=== PATIENT | male | born 1980 | race Caucasian/White ===

== ENCOUNTER → 2017-10-26 09:15 | Outpatient (REF) | payer SELFPAY | LOC: OM 09:15 | PROVIDERS: PCP Family Medicine; Visit Provider Nurse Practitioner Family | DX: Z02.79 Encounter for issue of other medical certificate (principal) ==

== ENCOUNTER 2024-05-10 07:01 | Emergency (ER) | payer SELFPAY ==
[2024-05-10] VITALS (23 sets, daily range): BP systolic 162–200; BP diastolic 107–125; PULSE 86–105; RESP 13–26; TEMP 36.9; O2SAT 92–99
--- NOTE | 2024-05-10 07:15 | DI.CT_ITS ---
Exam(s) CT RENAL COLIC WO EXAM: CT RENAL COLIC WO CLINICAL HISTORY: L. flank pain, hx stones. TECHNIQUE: Imaging Protocol: Axial computed tomography images with coronal and sagittal reformatted images were created and reviewed. COMPARISON: CT RENAL COLIC WO CONTRAST from 03/15/2007 FINDINGS: Lack of IV contrast does limit evaluation of the abdominal pelvic organs. ABDOMEN: Lung Bases: Atelectatic changes are seen in the lung bases. Liver: Normal density. No measurable mass. Gallbladder and biliary tract: No radiodense calculus or biliary ductal dilation. Pancreas: Normal density, no abnormal calcifications or inflammatory process. Spleen: Normal. Kidneys: Normal size, contour and axis.There is a 5 mm stone at the left UPJ causing mild hydronephro sis. No masses seen. Adrenal glands: No mass is seen. Lymph nodes: Within normal limits. Abdominal Aorta: Abdominal portion non-dilated. Mild atherosclerotic calcification is present. PELVIS: Bladder:The urinary bladder is incompletely distended limiting evaluation. Bowel: No obstruction or bowel wall thickening. Appendix is unremarkable. Peritoneal cavity: No ascites, collection or mesenteric inflammatory response. No free air. Reproductive organs: Prostatic calcifications are present. Bones: Within normal limits. Soft Tissues: Within normal limits. IMPRESSION: 5 mm left UPJ stone causing mild hydronephrosis. RADIATION DOSE DELIVERED: 883.29mGy.cm Total DLP DATA REPOSITORY: All CT scans at this facility are submitted to the National Radiology Data Registry (NRDR) Dose Index Registry (DIR) with the [employer] (ACR). RADIATION OPTIMIZATION: All CT scans at this facility use at least one of these dose optimization te chniques: automated exposure control; mA and/or kV adjustment per patient size (includes targeted exa ms where dose is matched to clinical indication); or iterative reconstruction.
--- NOTE | 2024-05-10 07:27 | ED.GENADUL_ITS ---
Discharge Plan Disposition Patient Disposition: Home Condition: Stable Discharge Details Clinical Impression: Kidney stone on left side Primary Care Provider: Unknown,Unknown ED Provider: Juli Barton Home Meds and New Rx's Prescriptions: New morphine 15 mg tablet 15 mg PO Q8H PRNQty: 7 0RF ondansetron 4 mg tablet,disintegrating 4 mg PO Q8H PRNQty: 10 0RF tamsulosin [Flomax] 0.4 mg capsule 0.4 mg PO DAILY 30 Days Qty: 30 0RF Discharge Instructions Instructions: Kidney Stone, Adult ED Additional Instructions: You were seen in the emergency department today for evaluation of flank pain and were found to have a kidney stone. In our department you had a full physical examination performed and had laboratory studies that were reassuring. Your kidney stone is approximately 4 mm, which has a very good chance of passing on its own. I recommend that you increase your hydration, and continue to use Tylenol and ibuprofen as the bulk of your pain management. Most patients like to alternate these medications so that they have good pain management throughout the day. For example, you can take ibuprofen, 600 mg, in the morning, take 650 to 1000 mg of Tylenol 3 hours later, then 3 hours after that you are due for your next dose of ibuprofen, and so forth. I have provided you with a short prescription for stronger pain medication to be used for breakthrough pain. Please be cautious taking this medication, as it can make you drowsy and you should not drive while using it. I also sent you a prescription for nausea medications to allow you to maintain your hydration. You will be started on medication called Flomax, which decreases spasm in the urinary system and improves the flow of urine. Please use caution as this medication can sometimes cause dizziness when moving from sitting to standing. Please strain your urine to ensure passage of the stone. If the stone has not passed in 2 weeks and you are still experiencing pain, you need to be following up with your outpatient provider, including your PCP and/or urology. I provided you with a referral to establish with primary care, they should contact you to schedule an appointment. Thank you for allowing us to be part of your care. Referrals: David Barrett MD [ [facility] ST[facility]FF PHYSICIAN] - Return if symptoms worsen HPI General Mode of arrival: ambulatory . Date/Time Provider Initiated Documentation: 05/10/24 07:09 . Limitations to Documentation: no limitations . Information obtained by: patient, family and old records reviewed . HPI Narrative: HPI: This is a 44-year-old male patient with a past history of kidney stones presenting for evaluation of left flank pain. The patient was woken from sleep around 4 5 this morning with left-sided flank pain that radiates down into his right groin. He has not noted hematuria, has had some nausea but no vomiting. Yesterday he was in his normal state of health with normal p.o. intake. The patient reports that his last stone passed spontaneously. He moved back to the area from [place] and has not yet reestablished with primary care. Does not take any daily medications and is otherwise in good health. Denies abdominal pain, testicular pain. Exam: Gen: Awake and alert, in no apparent distress HEENT: Non-icteric sclera Neck: Supple Lungs: No apparent respiratory distress, normal respiratory effort. CV: Appears well perfused, heart with regular rate and rhythm Abdomen: Non-distended, soft, nontender to palpation without rigidity, rebound, guarding. Left flank tender to palpation with no overlying skin changes MSK: Moves 4 extremities without apparent limitation in ROM Skin: Visualized skin without rashes, cyanosis. Neuro: Normal Gait, no obvious focal deficits or facial asymmetry. Speaks in full, clear sentences. Psych: Appropriate for situation. MDM: This is a 44-year-old male patient presenting for evaluation of left flank pain. Differential includes but is not limited to renal stone, certainly considered infected stone and pyelonephritis. The patient has no abdominal pain to significantly increase my concern for intra-abdominal pathology such as diverticulitis, pancreatitis, gastroenteritis, appendicitis. No testicular pain to suggest torsion. The patient is without risk factors to significantly increase my concern for aortic pathology such as AAA. We will obtain laboratory studies to include CBC, CMP, magnesium, and urinalysis. I performed a bedside ultrasound and do not appreciate significant hydronephrosis on the affected left side. We will obtain a CT renal stone protocol, and provide the patient with initial symptom management to include Tylenol, Toradol, and Zofran. I will provide him with a liter of IV fluids for rehydration. ED Course: I independently interpreted the laboratory studies, which show no significant leukocytosis, anemia, or thrombocytopenia. The chemistry panel is without evidence of electrolyte abnormality, kidney dysfunction, or liver injury. Urinalysis with small blood, 10-20 RBCs but no evidence for infectious findings. I independently interpreted the patient CT scan, which shows a 5 mm left renal stone in the proximal ureter, with associated mild hydronephrosis but no other acute findings. On reassessment the patient reports significant improvement in his pain. We discussed outpatient management in detail to include multimodal pain medications, hydration, and Flomax. A referral to primary care was sent, and at this time, the patient has had a full medical evaluation and is safe for discharge to home. They are hemodynamically stable, ambulatory, and tolerating PO. They are understanding of the follow-up plan and return precautions. They left our facility without incident. Juli Barton MD Related Data Home Medications ?Medication ?Instructions ?Recorded ?Confirmed morphine 15 mg immediate release 15 mg PO Q8H PRN #7 tabs 05/10/24 tablet ondansetron 4 mg disintegrating 4 mg PO Q8H PRN #10 tabs 05/10/24 tablet tamsulosin 0.4 mg capsule (Flomax) 0.4 mg PO DAILY 30 days #30 caps 05/10/24 Previous Rx's ?Medication ?Instructions ?Recorded morphine 15 mg immediate release 15 mg PO Q8H PRN #7 tabs 05/10/24 tablet ondansetron 4 mg disintegrating 4 mg PO Q8H PRN #10 tabs 05/10/24 tablet tamsulosin 0.4 mg capsule (Flomax) 0.4 mg PO DAILY 30 days #30 caps 05/10/24 Allergies Allergy/AdvReac Type Severity Reaction Status Date / Time Penicillins Allergy Intermediate Hives Unverified 05/10/24 07:10 General Stated Complaint: FlankPain GIACOMO: 3 Course Vital Signs Vital signs: Vital Signs Temperature 36.9 C 05/10/24 07:06 Pulse 86 05/10/24 07:06 Respiratory Rate 20 05/10/24 07:06 Blood Pressure 179/122 H 05/10/24 07:06 Pulse Oximetry 97 05/10/24 07:06 Temperature 36.9 C 05/10/24 07:26 Temperature Source Oral 05/10/24 07:26 Pulse 92 H 05/10/24 07:26 Respiratory Rate 22 05/10/24 07:26 Blood Pressure 172/117 H 05/10/24 07:26 Blood Pressure Position Supine 05/10/24 07:26 Pulse Oximetry 96 05/10/24 07:26 Oxygen Delivery Method Room Air 05/10/24 07:26 Oxygen Flow Rate 0 05/10/24 07:06 Pain Level 10 05/10/24 07:26 Medical Decision Making Quality:SDOH Health Related Social Needs: No Data to Display PFSH All Active Problems (Updated 05/10/24 @ 08:27 by Juli Barton MD) Kidney stone on left side (Acute) Visit for suture removal (Acute) Social History Smoking/Tobacco Use Status: Current every day Smoking risk assessment performed?: Yes Alcohol Intake: current Alcohol Intake frequency: 3 or more drinks per day Alcohol type: beer Drug use: Never Substance use type: does not use Housing: house Do you feel safe at home: Yes Do you feel safe in your relationship?: Yes POCUS Exam (ED) Limited Retroperitoneal(Renal)Exam DATE OF EXAM: 05/10/24 TIME OF EXAM: 07:28 PROVIDER THAT PERFORMED THE STUDY: Juli Barton IS THIS A REPEAT EXAM DURING THIS ENCOUNTER: No REASON FOR EXAM: Flank pain/left side VISUALIZED STRUCTURES: Left kidney and Right kidney PERTINENT FINDINGS/IMPRESSION: No apparent abnormalities Exam complete
[2024-05-10 07:29] LABS: Abs Immature Grans 0.06 10^3/uL (0.0-0.06); Absolute Basophil Count 0.05 10^3/uL (0.0-0.2); Absolute Eosinophil Count 0.09 10^3/uL (0.0-0.7); Absolute Lymphocyte Count 1.31 10^3/uL (1.2-3.4); Absolute Monocyte Count 0.35 10^3/uL (0.1-0.8); Absolute Neutrophil Count 4.44 10^3/uL (1.2-6.7); Basophils % 0.8 %; Eosinophils % 1.4 %; HCT 51.1 % (40.0-50.0); HGB 17.3 g/dL (13.5-17.5); Lymphocytes % 20.8 %; MCH 33.7 pg (27.0-33.0); MCHC 33.9 % (32.0-36.0); MCV 100 fL (80-95); MPV 9.2 fL (8.0-11.0); Monocytes % 5.6 %; Neutrophils % 70.4 %; Platelet Count 219 10^3/uL (130-400); RBC 5.13 10^6/uL (4.36-5.78); RDW 12.1 % (11.8-14.1); RDW-SD 45.1 fL
[2024-05-10] MEDS: Lactated Ringers 1,000 ML 1000 ML IV (07:37)
[2024-05-10] MEDS: Ondansetron 4 MG/2 ML VIAL IVP (07:40)
[2024-05-10] MEDS: Ketorolac 15 MG/ML VIAL IVP (07:41)
[2024-05-10 07:42] LABS: ALT 41 U/L (16-63); AST 30 U/L (15-37); Albumin 3.5 g/dL (3.4-5.0); Alkaline Phosphatase 87 U/L (46-116); Anion Gap 11.4 mmol/L (3-11); BUN 6 mg/dL (7-18); Bilirubin, Total 0.5 mg/dL (0.2-1.0); CO2 27.6 mmol/L (21.0-32.0); Calcium 8.7 mg/dL (8.5-10.1); Chloride 105 mmol/L (98-107); Estimated GFR 95.77 (mL/min/1.73m2); Glucose 134 mg/dL (74-106); Magnesium 2.1 mg/dL; Potassium 4.6 mmol/L (3.5-5.1); Sodium 144 mmol/L (136-145); Total Protein 7.1 g/dL (6.4-8.2)
[2024-05-10] MEDS: Acetaminophen 500 MG TAB 1000 MG PO (07:42)
[2024-05-10 08:19] LABS: Bilirubin Negative (Negative); Blood Small (Negative); Clarity Clear (Clear); Glucose Negative (Negative); Ketones Negative (Negative); Leukocyte Esterase Negative (Negative); Nitrite Negative (Negative)
[2024-05-10 08:31] LABS: Bacteria Negative HPF (Negative); C & S Indicated? No; Casts Negative LPF (Negative); Crystals Negative HPF (Negative); Epithelial Cells Negative HPF (Negative); Mucus Negative (Negative); WBC 0-2 HPF (0-5)
== END 2024-05-10 08:59 | disposition home or self-care (01) ==
LOC: ER 08:38
PROVIDERS: Emergency Provider Emergency Medicine
DX: N13.2 Hydronephrosis with renal and ureteral calculous obstruction (principal); F17.210 Nicotine dependence, cigarettes, uncomplicated
CPT/HCPCS: 76775; 80053; 96361; 96374; 96375; 99285; 74176; 81003; 81015; 83735; 85025; 99284; J1885; J2405

== ENCOUNTER 2024-05-12 23:29 | Emergency (ER) | payer SELFPAY ==
[2024-05-12 23:32] VITALS: BP 222/144; PULSE 112; RESP 20; TEMP 36.9; O2SAT 98
--- NOTE | 2024-05-12 23:39 | ED.GENADUL_ITS ---
Discharge Plan Disposition Patient Disposition: Home Condition: Good Discharge Details Clinical Impression: Kidney stone, Constipation Primary Care Provider: Unknown,Unknown ED Provider: Gómez Guajardo Home Meds and New Rx's Prescriptions: New ketorolac 10 mg tablet 10 mg PO TID 5 Days Qty: 15 0RF docusate sodium [Colace] 100 mg capsule 100 mg PO BID Qty: 20 0RF No Action morphine 15 mg tablet 15 mg PO Q8H PRNQty: 7 0RF ondansetron 4 mg tablet,disintegrating 4 mg PO Q8H PRNQty: 10 0RF tamsulosin [Flomax] 0.4 mg capsule 0.4 mg PO DAILY 30 Days Qty: 30 0RF Discharge Instructions Instructions: Kidney Stone Diet, Constipation, Adult ED Additional Instructions: At this time your kidney function has begun to show an improvement trend after the hydration. It is critical that you stay well-hydrated over the next few days, drink 10 to 12 cups of water per day minimum. Make sure to drink lemon juice or supplement your water with this as well to help in the resolution of your kidney stone. There is a high likelihood that the stone is the type that would respond well to this. Please take 1000 mg of Tylenol every 6 hours. Do not take Motrin or ibuprofen anymore. If you need additional pain management you can take the morphine for breakthrough pain or if the Toradol. The Toradol may cause some continued irritation to your kidney so. You will likely need a stent to get the stone removed. Please follow-up closely with Dr. Barrett on Tuesday. Please call his office at 8 AM if he has not contacted you. In regards to your constipation, please take the prescribed Colace, 1 pill twice daily. We have given you a bottle of magnesium citrate. You can take this when you get home, make sure to drink it with 5 to 6 cups of water. This will cause significant cramping but this should bring about the passage of your bowel movement. If you notice any worsening of your symptoms, or any new symptoms such as vomiting, diarrhea, fever, chills, shortness of breath, chest pain, numbness, weakness, or fainting , please return immediately to the emergency department for reevaluation. Please follow up with your primary care provider as soon as possible for reassessment and reevaluation. As always, it was a pleasure participating in your medical care today. Referrals: David Barrett MD [ [facility] STAFF PHYSICIAN] - [facility] General Date/Time Provider Initiated Documentation: 05/12/24 23:30 . [facility] Narrative: This is a 44-year-old male with a past medical history of kidney stones in the distant past, no recent diagnosis 3 days ago, presents today for evaluation of continued left flank pain and constipation. Patient was diagnosed with a 5 mm left kidney stone in the proximal ureter, pain was well-controlled, he was discharged with morphine, NSAID therapy ondansetron and Flomax. He has been taking these as directed, however because of this he has had not had a bowel movement for the last day or so and feels quite constipated. He denies fever or chills. Pain in the left flank is persisting, there is also some mild left-sided cramping. He has not been using a strainer for his urine. He was given a strainer at discharge though per patient. No other complaints at this time. No other modifying factors. Related Data Home Medications ?Medication ?Instructions ?Recorded ?Confirmed morphine 15 mg immediate release 15 mg PO Q8H PRN #7 tabs 05/10/24 05/12/24 tablet ondansetron 4 mg disintegrating 4 mg PO Q8H PRN #10 tabs 05/10/24 05/12/24 tablet tamsulosin 0.4 mg capsule (Flomax) 0.4 mg PO DAILY 30 days #30 caps 05/10/24 05/12/24 docusate sodium 100 mg capsule 100 mg PO BID #20 caps 05/13/24 (Colace) ketorolac 10 mg tablet 10 mg PO TID 5 days #15 tabs 05/13/24 Previous Rx's ?Medication ?Instructions ?Recorded morphine 15 mg immediate release 15 mg PO Q8H PRN #7 tabs 05/10/24 tablet ondansetron 4 mg disintegrating 4 mg PO Q8H PRN #10 tabs 05/10/24 tablet tamsulosin 0.4 mg capsule (Flomax) 0.4 mg PO DAILY 30 days #30 caps 05/10/24 docusate sodium 100 mg capsule 100 mg PO BID #20 caps 05/13/24 (Colace) ketorolac 10 mg tablet 10 mg PO TID 5 days #15 tabs 05/13/24 Allergies Allergy/AdvReac Type Severity Reaction Status Date / Time Penicillins Allergy Intermediate Hives Unverified 05/12/24 23:38 General Stated Complaint: Nk/Back Pain GIACOMO: 3 Exam Narrative Exam Narrative: 1.Const: Well-nourished, Well-developed, appearing stated age 2.Eyes: PERRL, no conjunctival injection, and symmetrical lids. 3.ENT: Atraumatic external nose and ears. Moist MM. Neck: Symmetric, trachea midline, No thyromegaly. 4.CVS: +S1/S2, Peripheral pulses 2+ and equal in all extremities. Brisk capillary refill in all extremities. 5.RESP: Unlabored respiratory effort. Clear to auscultation bilaterally. No wheezes rales or rhonchi 6.GI: Soft, nondistended, no guarding or rebound. Mild left-sided flank and abdominal tenderness. No pain at McBurney's point, negative Mittal sign. 7.MSK: Normocephalic/Atraumatic, Extremities w/o deformity or ttp No cyanosis or clubbing, Normal movement of all extremities 8.Skin: Warm, Dry. No rashes or lesions. 9.Neuro: emissions inspector II-XII grossly intact. Sensation grossly intact, no focal neurologic deficits. 10.Psych: (AAO) x3. Appropriate mood and affect Course Vital Signs Vital signs: Vital Signs Temperature 36.9 C 05/12/24 23:32 Pulse 112 H 05/12/24 23:32 Respiratory Rate 20 05/12/24 23:32 Blood Pressure 222/144 H 05/12/24 23:32 Pulse Oximetry 98 05/12/24 23:32 Temperature 36.9 C 05/12/24 23:32 Pulse 112 H 05/12/24 23:32 Respiratory Rate 20 05/12/24 23:32 Blood Pressure 222/144 H 05/12/24 23:32 Blood Pressure Position Sitting 05/12/24 23:32 Pulse Oximetry 98 05/12/24 23:32 Oxygen Delivery Method Room Air 05/12/24 23:32 Oxygen Flow Rate 0 05/12/24 23:32 Pain Level 10 05/12/24 23:36 Medical Decision Making This is a pleasant 48-year-old male with a past medical history of PTSD, polycythemia vera, hyperaldosteronism, and recurrent frequent kidney stones. Patient is seen and managed by Dr. Barrett, but he is also recently been connected with urology specialists in [place] who are working at a conference level to help identify a solution for the patient's recurrent kidney stones. He presents today for evaluation of flank pain. Patient had a stent placed by Dr. Barrett about 5 days ago on the left. He was given antibiotics prior to the procedure to help sterilize any potential infectious component. Stent was placed and since then he has had somewhat persistent and recurrent pain mostly in the left flank but also some in the right. Pain has notably worsened over the last 24 hours, but he has had significant difficulty with urination over the last 24 hours. Only small amounts of urine have been coming out. He admits to occasional fever yesterday, then chills today and yesterday. He is taking his regular scheduled narcotics, NSAIDs and Flomax without relief. No other complaints at this time. No other modifying factors. Physical exam demonstrates mild left-sided flank tenderness, no guarding or rebound in the abdomen. Vital signs demonstrate hypertension and tachycardia, concern for persistent stone, infection, certainly constipation. Symptoms appear less likely to be diverticulitis. We will check labs, evaluate for worsening renal function, recheck UA, treat the patient's pain with Toradol and Ofirmev and rehydrate, monitor closely and reassess. 3 AM Patient's laboratory workup has returned, no white count bandemia, electrolytes stable, creatinine has gone up from 1-1.6, GFR has decreased. On reassessment patient has complete resolution of his pain after the Toradol and Ofirmev. He feels well. He has been rehydrated with 2 L total of IV fluids. CT scan was ordered secondary to the worsening renal function, CT scan shows no change in hydronephrosis, and demonstrates notable stability. It is currently the week d, and unfortunately Dr. Barrett is not on-call. I did reach out to [facility] and discussed the case with Dr. Gama. Unfortunately the [facility] system is down and they were not able to see images but I did discuss the image findings with them. With the elevation of the creatinine he does recommend reassessment of the renal function after hydration. If the renal function is improving, patient likely could wait until Tuesday for potential stenting, as that is only 27 hours away. We will recheck renal function at this time. 5:37 AM Patient has an improvement of his trend for his renal function, GFR and creatinine are slightly improving. He feels well and remains pain-free. I do not see an indication for emergent stenting tonight. I do feel he would likely benefit from stenting in the next 24 to [address] a referral with Dr. Barrett for this. Patient will be discharged home, he will be given a bottle of magnesium citrate to help with the constipation, Colace prescription, and Toradol to use only as needed for breakthrough pain. Discussed the importance of lemon juice, hydration, and close follow-up and return if symptoms worsen. He understands this. I have extensively reviewed the treatment plan and discharge instructions with the patient and their family. I have addressed all patient concerns at this time. The patient and family was made aware of what symptoms to monitor for that would warrant a return to the emergency department. Discussed the plan with the patient and family, they demonstrate verbal understanding and agreement with our assessment and plan at this time. The documentation in this chart was dictated using [id number] dictation software. Please excuse any dictation errors. FINDINGS: Lungs: Mild posterior lung dependent parenchymal changes bilaterally. Liver: No discrete liver lesion. Gallbladder and biliary ducts: Normal. No calcified stones. No ductal dilation. Pancreas: Normal. No ductal dilation. Spleen: Normal. No splenomegaly. Adrenal glands: Normal. No mass. Kidneys and ureters: Normal unenhanced right kidney. Mild left perinephric stranding. Compared to the prior CT abdomen/pelvis without contrast dated 05/10/2024, no interval change in left hydronephrosis or approximate 5.5 mm calcified stone at the left UPJ. Stomach and bowel: Unremarkable. No obstruction. No mucosal thickening. Appendix: Normal appendix. Intraperitoneal space: No free air. No significant fluid collection. Vasculature: The abdominal aorta is normal in caliber without aneurysm. Lymph nodes: No enlarged lymph nodes. Urinary bladder: Unremarkable as visualized. Reproductive: Unremarkable as visualized. Bones/joints: Unremarkable for patient age. Soft tissues: Small fat-containing umbilical hernia. IMPRESSION: Compared to the prior CT abdomen/pelvis without contrast dated 05/10/2024, no interval change in left hydronephrosis or approximate 5.5 mm calcified stone at the left UPJ. Thank you for allowing us to participate in the care of your patient. Dictated and Authenticated by: Jorge Lowery MD 05/13/2024 2:39 AM Eastern Time ([place] & [place] Quality:SDOH Health Related Social Needs: No Data to Display PFSH All Active Problems (Updated 05/13/24 @ 05:27 by Gómez Guajardo DO) Constipation (Acute) Kidney stone (Chronic) Kidney stone on left side (Acute) Visit for suture removal (Acute) Social History Smoking/Tobacco Use Status: Current every day Smoking risk assessment performed?: Yes Alcohol Intake: current Alcohol Intake frequency: 3 or more drinks per day Alcohol type: beer Drug use: Never Substance use type: does not use Housing: house Do you feel safe at home: Yes Do you feel safe in your relationship?: Yes
[2024-05-12 23:49] LABS: Abs Immature Grans 0.06 10^3/uL (0.0-0.06); Absolute Basophil Count 0.03 10^3/uL (0.0-0.2); Absolute Eosinophil Count 0.04 10^3/uL (0.0-0.7); Absolute Lymphocyte Count 0.93 10^3/uL (1.2-3.4); Absolute Monocyte Count 0.69 10^3/uL (0.1-0.8); Absolute Neutrophil Count 7.62 10^3/uL (1.2-6.7); Basophils % 0.3 %; Eosinophils % 0.4 %; HCT 46.2 % (40.0-50.0); Immature Grans % 0.6 %; Lymphocytes % 9.9 %; MCH 34.3 pg (27.0-33.0); MCHC 34.6 % (32.0-36.0); MCV 99 fL (80-95); MPV 8.9 fL (8.0-11.0); Monocytes % 7.4 %; Neutrophils % 81.4 %; Platelet Count 179 10^3/uL (130-400); RBC 4.67 10^6/uL (4.36-5.78); RDW 11.9 % (11.8-14.1); RDW-SD 43.4 fL; WBC 9.37 10^3/uL (4.4-10.8)
[2024-05-12] MEDS: Ketorolac 30 MG/ML VIAL IVP (23:50)
[2024-05-12] MEDS: ACETAMINOPHEN 1,000 MG/100 ML BAG 400 MG IVPB (23:50)
[2024-05-12 23:51] VITALS: PULSE 105; RESP 19; O2SAT 93
[2024-05-12] MEDS: Lactated Ringers 1,000 ML 1000 ML IV (23:51)
[2024-05-12 23:54] VITALS: BP 220/124; PULSE 105; PULSE 106; RESP 19; O2SAT 93
[2024-05-12 23:55] VITALS: PULSE 103; PULSE 104; RESP 18; O2SAT 94
[2024-05-13] VITALS (38 sets, daily range): BP systolic 167–200; BP diastolic 108–124; PULSE 89–108; RESP 13–22; O2SAT 91–97
[2024-05-13 00:04] LABS: ALT 35 U/L (16-63); AST 24 U/L (15-37); Albumin 3.6 g/dL (3.4-5.0); Alkaline Phosphatase 82 U/L (46-116); Anion Gap 6.1 mmol/L (3-11); BUN 10 mg/dL (7-18); Bilirubin, Total 0.8 mg/dL (0.2-1.0); CO2 29.9 mmol/L (21.0-32.0); CREATININE 1.6 mg/dL (0.70-1.30); Calcium 9.3 mg/dL (8.5-10.1); Chloride 101 mmol/L (98-107); Estimated GFR 54.49 (mL/min/1.73m2); Glucose 103 mg/dL (74-106); Potassium 4.7 mmol/L (3.5-5.1); Sodium 137 mmol/L (136-145); Total Protein 7.6 g/dL (6.4-8.2)
--- NOTE | 2024-05-13 01:04 | DI.CT_ITS ---
Exam(s) CT ABDOMEN PELVIS WO EXAM: CT ABDOMEN PELVIS WO CLINICAL HISTORY: kidney stone, worsening renal fxn. eval for obstru. TECHNIQUE: Imaging Protocol: Axial computed tomography images with coronal and sagittal reformatted images were created and reviewed. COMPARISON: CT RENAL COLIC WO CONTRAST from 03/15/[address] RENAL COLIC WO from 05/10/2024 FINDINGS: ABDOMEN: Lung Bases: There is atelectasis in the lung bases. Liver: There is fatty infiltration of the liver. No measurable mass. Gallbladder and biliary tract: No radiodense calculus or biliary ductal dilation. Pancreas: Normal density, no abnormal calcifications or inflammatory process. Spleen: Normal. Kidneys: Normal size, contour and axis.The stone at the UPJ is unchanged in location. There is stabl e mild hydronephrosis. No masses seen. Adrenal glands: No mass is seen. Lymph nodes: Within normal limits. Abdominal Aorta: Abdominal portion non-dilated. Mild atherosclerotic calcification is present. PELVIS: Bladder:Symmetric distention, no gross wall thickening. Bowel: There is diverticulosis seen in the colon but no evidence of acute diverticulitis. There is n o evidence of bowel wall thickening or obstruction. Appendix is unremarkable. Peritoneal cavity: No ascites, collection or mesenteric inflammatory response. No free air. Reproductive organs: Unremarkable as visualized. Bones: No acute abnormality is seen in the osseous structures. Soft Tissues: Within normal limits. IMPRESSION: There has been no change in the location or the degree of hydronephrosis caused by the 5 mm stone at the left UPJ. RADIATION DOSE DELIVERED: 808.62mGy.cm Total DLP DATA REPOSITORY: All CT scans at this facility are submitted to the National Radiology Data Registry (NRDR) Dose Index Registry (DIR) with the [employer] (A[employer]). RADIATION OPTIMIZATION: All CT scans at this facility use at least one of these dose optimization te chniques: automated exposure control; mA and/or kV adjustment per patient size (includes targeted exa ms where dose is matched to clinical indication); or iterative reconstruction.
[2024-05-13] MEDS: Normal Saline 1,000 ML 1000 ML IV (01:16)
[2024-05-13 01:24] LABS: Bilirubin Negative (Negative); Blood Negative (Negative); Clarity Clear (Clear); Glucose Negative (Negative); Ketones Negative (Negative); Leukocyte Esterase Negative (Negative); Nitrite Negative (Negative); Urobilinogen 0.2 mg/dL (Up to 0.2)
--- NOTE | 2024-05-13 02:39 | DI.VRAD_ITS ---
PROCEDURE INFORMATION: Exam: CT Abdomen And Pelvis Without Contrast Exam date and time: 05/13/2024 12:56 AM Age: 44 years old Clinical indication: Kidney stone, worsening renal fxn. Eval for obstruction TECHNIQUE: Imaging protocol: Computed tomography of the abdomen and pelvis without contrast. COMPARISON: CT RENAL COLIC WO 05/10/2024 8:10 AM FINDINGS: Lungs: Mild posterior lung dependent parenchymal changes bilaterally. Liver: No discrete liver lesion. Gallbladder and biliary ducts: Normal. No calcified stones. No ductal dilation. Pancreas: Normal. No ductal dilation. Spleen: Normal. No splenomegaly. Adrenal glands: Normal. No mass. Kidneys and ureters: Normal unenhanced right kidney. Mild left perinephric stranding. Compared to the prior CT abdomen/pelvis without contrast dated 05/10/2024, no interval change in left hydronephrosis or approximate 5.5 mm calcified stone at the left UPJ. Stomach and bowel: Unremarkable. No obstruction. No mucosal thickening. Appendix: Normal appendix. Intraperitoneal space: No free air. No significant fluid collection. Vasculature: The abdominal aorta is normal in caliber without aneurysm. Lymph nodes: No enlarged lymph nodes. Urinary bladder: Unremarkable as visualized. Reproductive: Unremarkable as visualized. Bones/joints: Unremarkable for patient age. Soft tissues: Small fat-containing umbilical hernia. IMPRESSION: Compared to the prior CT abdomen/pelvis without contrast dated 05/10/2024, no interval change in left hydronephrosis or approximate 5.5 mm calcified stone at the left UPJ. Dictated and Authenticated by: Jorge Lowery MD. Orderin Casandra Magaña MD
[2024-05-13 03:23] LABS: Anion Gap 6.4 mmol/L (3-11); BUN 10 mg/dL (7-18); CO2 28.6 mmol/L (21.0-32.0); CREATININE 1.6 mg/dL (0.70-1.30); Calcium 8.6 mg/dL (8.5-10.1); Chloride 105 mmol/L (98-107); Estimated GFR 54.49 (mL/min/1.73m2); Glucose 97 mg/dL (74-106); Potassium 4.4 mmol/L (3.5-5.1); Sodium 140 mmol/L (136-145)
[2024-05-13] MEDS: Lactated Ringers 1,000 ML 1000 ML IV (03:32)
[2024-05-13 05:18] LABS: Anion Gap 7.2 mmol/L (3-11); BUN 10 mg/dL (7-18); CO2 27.8 mmol/L (21.0-32.0); CREATININE 1.5 mg/dL (0.70-1.30); Calcium 8.7 mg/dL (8.5-10.1); Chloride 103 mmol/L (98-107); Estimated GFR 58.87 (mL/min/1.73m2); Glucose 94 mg/dL (74-106); Potassium 4.4 mmol/L (3.5-5.1); Sodium 138 mmol/L (136-145)
[2024-05-13] MEDS: Magnesium Citrate 300 ML BTL 150 ML PO (05:38)
== END 2024-05-13 05:38 | disposition home or self-care (01) ==
PROVIDERS: Emergency Provider Student in an Organized Health Care Education/Training Program
DX: R10.9 Unspecified abdominal pain (principal); N20.1 Calculus of ureter; K59.00 Constipation, unspecified; F17.200 Nicotine dependence, unspecified, uncomplicated; Z96.0 Presence of urogenital implants
CPT/HCPCS: 80048; 80053; 96361; 96365; 96375; 99284; 74176; 81003; 85025; J0131; J1885

== ENCOUNTER 2024-05-23 08:44 | Outpatient (CLI) | payer SELFPAY ==
--- NOTE | 2024-05-23 08:45 | RT.EKG_ITS ---
APPROVED REPORT Exam: Resting ECG Reason for Exam: Preop eval/hypertensive Patient Location: O HR:90 bpm ECG Measurements Heart Rate 90 AXIS OR 146 P 19 QRSd 95 QRS -6 QT 375 T 7 QTc 459 Conclusion Sinus rhythm...normal P axis, V-rate 50- 99 Probable left atrial enlargement...P >50mS, <-0.10mV V1 Otherwise normal ECG
== END 2024-05-23 08:45 | disposition home or self-care (01) ==
PROVIDERS: Visit Provider Nurse Practitioner Gerontology
DX: I10 Essential (primary) hypertension (principal)
CPT/HCPCS: 93005; 93010

== ENCOUNTER 2024-05-31 07:00 | Day surgery (SDC) | payer SELFPAY ==
[2024-05-31] VITALS (12 sets, daily range): BP systolic 161–174; BP diastolic 114–120; PULSE 86–96; RESP 16–20; TEMP 36.3–36.5; O2SAT 96–99; BMI 30.8
[2024-05-31] MEDS: Lactated Ringers 1,000 ML 80 ML IV (07:54)
--- NOTE | 2024-05-31 08:27 | ANES.PREOP_ITS ---
General Info Date of Service Date Performed: 05/31/24 Height: 6 ft 4 in Weight: 114.8 kg Body Mass Index (BMI): 30.8 Surgical Procedure: Operation Date: 05/31/24 08:40 Proposed Procedure Side Surgeon p Cystoscopy/Possible Laser/Retrograde/Ureteroscopy/ Stone Manipulation/ ? Stent Left David Barrett MD Meds Allergies and Home Medications Allergies Allergy/AdvReac Type Severity Reaction Status Date / Time Penicillins Allergy Intermediate Hives Verified 05/31/24 07:19 Home Medication ?Medication ?Instructions ?Recorded docusate sodium 100 mg capsule 100 mg PO BID #20 caps 05/13/24 (Colace) ketorolac 10 mg tablet 10 mg PO Q8H #15 tabs 05/23/24 losartan 100 mg tablet 100 mg PO DAILY #90 tabs 05/23/24 tamsulosin 0.4 mg capsule 0.4 mg PO DAILY 05/24/24 Current Visit Medications: Current Medications Generic Name Dose Route Start Last Admin Trade Name Freq PRN Reason Stop Dose Admin Ringer's Solution 1,000 mls @ 80 mls/hr 05/31/24 06:00 05/31/24 07:54 IV 05/31/24 23:59 80 mls/hr INFUSION FLORY Administration Ciprofloxacin 400 mg in 200 mls @ 200 mls/hr 05/31/24 06:00 Cipro I.V. IVPB 05/31/24 23:59 PREOP FLORY IV Miscellaneous Supplies 1 each 05/31/24 06:00 Iv Access IV 05/31/24 23:59 DIRECTED FLORY Sodium Chloride 0 ml 05/31/24 06:00 Normal Saline Flush 10 Ml Syr IV 05/31/24 23:59 PRN PRN Sodium Chloride 0 ml 05/31/24 06:00 Normal Saline 10 Ml Vial IJ 05/31/24 23:59 DIRECTED PRN Sterile Water 0 ml 05/31/24 06:00 Water,Injection,Sterile 10 Ml Vial IJ 05/31/24 23:59 DIRECTED PRN PFSH Active Problems Active Problems: Problem Status Onset Code Hypertension Chronic I10 Constipation Acute K59.00 Kidney stone Chronic N20.0 Kidney stone on left side Acute N20.0 Visit for suture removal Acute Z48.02 Medical History Medical History Hx of fracture of leg Surgical History Surgical History Hx of wisdom tooth extraction Tobacco Smoking/Tobacco Use Status: Current every day Tobacco Type: cigarettes Passive smoking exposure: Yes Alcohol Alcohol Intake: current Alcohol intake frequency: 3 or more drinks per day Alcohol type: beer Substance Use Substance use: Never Substance use type: does not use Vital Signs and Lab Results Vital Signs Most Recent Vital Signs in EMR: Most Recent Vital Signs Temp Pulse Resp BP Pulse Ox 36.4 C L 96 H 16 168/115 H 99 05/31/24 07:22 05/31/24 07:22 05/31/24 07:22 05/31/24 07:22 05/31/24 07:22 Lab Results Blood Type / Crossmatch: No Data to Display Complete Blood Count: White Blood Count 9.37 10^3/uL (4.4-10.8) 05/12/24 23:44 Red Blood Count 4.67 10^6/uL (4.36-5.78) 05/12/24 23:44 Hemoglobin 16.0 g/dL (13.5-17.5) 05/12/24 23:44 Hematocrit 46.2 % (40.0-50.0) 05/12/24 23:44 Platelet Count 179 10^3/uL (130-400) 05/12/24 23:44 Complete Metabolic Panel: Sodium 138 mmol/L (136-145) 05/13/24 05:00 Potassium 4.4 mmol/L (3.5-5.1) 05/13/24 05:00 Chloride 103 mmol/L (98-107) 05/13/24 05:00 Carbon Dioxide 27.8 mmol/L (21.0-32.0) 05/13/24 05:00 BUN 10 mg/dL (7-18) 05/13/24 05:00 Creatinine 1.5 mg/dL (0.70-1.30) H 05/13/24 05:00 Est GFR (CKD-EPI 2020) 58.87 (mL/min/1.73m2) 05/13/24 05:00 Magnesium 2.1 mg/dL 05/10/24 07:20 Calcium 8.7 mg/dL (8.5-10.1) 05/13/24 05:00 Albumin 3.6 g/dL (3.4-5.0) 05/12/24 23:44 Glucose 94 mg/dL (74-106) 05/13/24 05:00 Liver Function Panel: Alanine Aminotransferase (ALT/SGPT) 35 U/L (16-63) 05/12/24 23: 44 Aspartate Amino Transf (AST/SGOT) 24 U/L (15-37) 05/12/24 23:44 Coagulation Panel: No Data to Display Cardiac Panel: No Data to Display Arterial Blood Gas: No Data to Display Venous Blood Gas: No Data to Display Pancreas Panel: No Data to Display Thyroid Panel: No Data to Display Infectious Disease: No Data to Display Blood Cultures: No Data to Display Toxicology Panel: No Data to Display Anesthesia Assessment and Plan Anesthesia History Personal History: No History of Anesthesia Complications Family History: No Family History of Anesthesia Complications Exercise Tolerance Exercise Tolerance: Metabolic Equivalents>4 Pertinent Negatives Pertinent Negatives: No Major Pulmonary Symptoms or Complaints and No History of CVA/TIA Cardiac & Pulmonary Exam Cardiac Exam: Normal S1/S2 Heart Sounds Pulmonary Exam: Clear Bilateral Breath Sounds Implantable Cardiac Device Does patient have a Pacemaker or an ICD?: No Airway Exam Known Difficult Airway: No Mallampati Class: 3 Mouth Opening: Normal (> 3cm) Thyromental Distance: Greater than 3 cm Facial Hair: Full Brown Neck Range of Motion: Full ROM Neck Circumference: Normal Teeth Condition: Generalized Poor Dentition Airway Comments: Cracked lower right molar, stated second from the back, unable to appreciate. ASA Classification ASA Score: ASA 2 Emergency Case?: No NPO Status NPO Status: NPO Clears >2 hours, Solids >8 hours Anesthesia Plan Resuscitation Status: Full Code Anesthesia Technique: General Anesthesia Airway Planned: Natural Airway Monitors Used: Standard Monitors Preoperative Comments:: GERD only with alcohol per patient, no recent symptoms. Still working on blood pressure control, okay to proceed today.
--- NOTE | 2024-05-31 08:51 | W.PM.HP.N ---
Date of service: 05/31/24 Time of Service: 08:51 Assessment and Plan Assessment and plan (1) Kidney stone on left side: Status: Acute Assessment and plan: At the time of his most recent imaging, his left ureteral stone was quite proximal. We will plan to do cystoscopy, left retrograde pyelogram and possible ureteroscopy and holmium laser lithotripsy of his stone. If we are not able to access his stone, we may need to place a ureteral stent and arrange for a staged procedure with a return to the OR for ureteroscopy and holmium laser lithotripsy. History of Present Illness History of Present Illness Chief Complaint: Left ureteral stone Narrative: This is a 44 year old man who has a past history of kidney stones. He passed his stone spontaneously. We are unaware of a stone analysis result. He presents now with left flank pain that radiates to his groin and testicle. He has had nausea. He was seen in the ED on 2 separate occasions and he was found to have a left proximal ureteral stone. The stone has no progressed on imaging. Since that time, his pain has been less frequent and seems more localized to the left groin. He presents for ureteroscopic stone manipulation. He was found to have an elevated BP. He was seen by our cardiology colleagues and started on losartin. Review of Systems Narrative: No fevers or chills No vision change or dysphasia No diabetes or thyroid dysfunction No shortness of breath, cough or hemoptysis No chest pain or palpitations No hepatitis, ulcers, jaundice No seizures, strokes or peripheral neuropathy No bleeding disorders or anemia No gout PFSH All Active Problems Hypertension (Chronic) Constipation (Acute) Kidney stone (Chronic) Kidney stone on left side (Acute) Visit for suture removal (Acute) Medical History Hx of fracture of leg Surgical History Hx of wisdom tooth extraction Social History Smoking/Tobacco Use Status: Current every day Tobacco Type: cigarettes Smoking risk assessment performed?: Yes Alcohol Intake: current Alcohol Intake frequency: 3 or more drinks per day Alcohol type: beer Drug use: Never Substance use type: does not use Housing: house Do you feel safe at home: Yes Do you feel safe in your relationship?: Yes Meds Allergies and Home Medications Allergies Allergy/AdvReac Type Severity Reaction Status Date / Time Penicillins Allergy Intermediate Hives Verified 05/31/24 07:19 Home Medications ?Medication ?Instructions ?Recorded ?Confirmed ?Type docusate sodium 100 mg capsule 100 mg PO BID #20 caps 05/13/24 05/31/24 Rx (Colace) ketorolac 10 mg tablet 10 mg PO Q8H #15 tabs 05/23/24 05/31/24 Rx losartan 100 mg tablet 100 mg PO DAILY #90 tabs 05/23/24 05/31/24 Rx tamsulosin 0.4 mg capsule 0.4 mg PO DAILY 05/24/24 05/31/24 History Exam Const General: cooperative Neck Neck: supple Resp Effort & Inspection: normal respiratory effort Auscultation: clear to auscultation bilaterally Cardio Rate: regular rate Rhythm: regular rhythm GI Palpation: soft and no masses Neuro General: patient alert, patient awake and patient oriented x3 Results Last Vital Signs Temp 36.4 C L 05/31/24 07:22 Pulse 96 H 05/31/24 07:22 Resp 16 05/31/24 07:22 BP 168/115 H 05/31/24 07:22 Pulse Ox 99 05/31/24 07:22 Time Spent Time spent with Patient: <40 minutes Time was spent: other
[2024-05-31] MEDS: CIPROFLOXACIN 400 MG/200 ML BAG 200 MG IVPB (09:23)
[2024-05-31] MEDS: Lidocaine 2% Jelly 11 ML SYR (09:51)
[2024-05-31] MEDS: Omnipaque 300 MG/ML 50 ML BTL (10:10)
--- NOTE | 2024-05-31 10:15 | DI.RAD_ITS ---
Exam(s) XR RETROGRADE IN OR EXAM: XR RETROGRADE IN OR CLINICAL HISTORY: Kidney stone on left side TECHNIQUE: 2D and realtime digital imaging was performed. CONTRAST MATERIAL: Refer to procedure report. COMPARISON: No exams were available for comparison FINDINGS: Fluoroscopy was provided for Dr. Barrett during the performance of a retrograde evaluation of the josue l collecting system. Please refer to the procedure report for complete details. Ka,r=17.1 mGy IMPRESSION: RADIATION DOSE DELIVERED: 0.0 0.0 0
--- NOTE | 2024-05-31 10:21 | PDOC.DSDIS_ITS ---
Date of service: 05/31/24 Discharge Plan Disposition Patient Disposition: Home Discharge Details Reason For Visit: ureteral stone Attending Provider: David Barrett Primary Care Provider: None,None Home Meds and New Rx's Prescriptions: No Action ketorolac 10 mg tablet 10 mg PO Q8H Qty: 15 0RF Rx Instructions: maximum total duration of 5 days from all oral, intranasal, or parenteral fo rmulations tamsulosin 0.4 mg capsule 0.4 mg PO DAILY losartan 100 mg tablet 100 mg PO DAILY Qty: 90 3RF docusate sodium [Colace] 100 mg capsule 100 mg PO BID Qty: 20 0RF Discharge Instructions Additional Instructions: There is no need to strain your urine You have a stent in the left ureter. As long as the stent is in place, you may see blood in your urine and you may have discomfort when you urinate. The stent will be removed in the office within a week - this can be done by the nursing staff You will need an appointment to see me in the office in 6 to 8 weeks. I will do a renal ultrasound in the office at that time. Discharge Orders Discharge Orders: Discharge Order (Routine); Ordered 05/31/24 Ordered By: David Barrett DS: Diagnosis Discharge Diagnosis (1) Kidney stone on left side: Status: Acute
--- NOTE | 2024-05-31 10:26 | ROE_ITS ---
Operative Note Operative Note PRE-OP DIAGNOSIS: left ureteral stone POST-OP DIAGNOSIS: same PROCEDURE: cystoscopy, left retrograde pyelogram, left ureteroscopy with holmium laser lithotripsy, extraction of stone fragments, insert left ureteral stent SURGEON: David Barrett ANESTHESIA TYPE: Local By Surgeon and General:No Airway Refer to Anesthesia Record ESTIMATED BLOOD LOSS: 5 PATHOLOGY: other (stones for chemical analysis) COMPLICATIONS: None Patient was transported to: PACU Patient's condition: stable Implants: 4.8 [place] by 22 to 30 cm left ureteral stent with safety string attached Indications: This is a 44-year-old gentleman who does have a past history of kidney stones. His previous stone passed with conservative management. He has not required surgical treatment for stones in the past. He has had multiple recent emergency room visits for left renal colic. He has had 2 [address] scans that show a left proximal ureteral stone that does not seem to be progressing with conservative treatment. He presents for stone manipulation. Findings: Left proximal ureteral stone Procedure Description: The patient was given IV antibiotics and brought to the operating room on 05/31/2024. After successful induction of general anesthesia without intubation, he was placed in the dorsal lithotomy position. His genitalia was prepped and draped. 2% Xylocaine jelly was instilled into the urethra to act as a local anesthetic. A 22 [place] rigid cystoscope was passed through the urethra into the bladder. The urethra and bladder were inspected with the 30 degree lens. The pendulous, bulbar and membranous urethra was all appeared normal with no strictures. The prostatic urethra showed minimal lateral lobe enlargement with no significant median lobe present. The bladder neck was entered and the bladder mucosa was inspected. Both ureteral orifices appeared normal with no blood coming from either side. There was no edema or erythema around the ureteral orifices. The left orifice was then cannulated with a 5 [place] access catheter and a retrograde pyelogram was obtained by injecting Omnipaque through the access catheter under fluoroscopic guidance. A filling defect was outlined in the proximal left ureter. I then passed a guidewire through the lumen of the access catheter and removed the catheter and cystoscope. I passed a dual-lumen catheter over the wire and positioned a second wire up the ureter. We chose one of the wires as a working wire and the other as a safety wire. I passed a ureteral access sheath over the working wire leaving the safety wire in place. I then passed the flexible ureteroscope through the access sheath and advanced the scope up the ureter until the stone was visualized. The stone appeared too large to remove in its entirety, so we treated the stone with a 272 ?m holmium laser fiber. We used a combination of dusting settings and fragmenting settings for the stone. As the stone was broken into smaller pieces, multiple pieces were grasped and a 0 tip stone basket and removed. Stones that were removed were sent to the laboratory for chemical analysis. At the completion of the procedure, I saw no remaining large stone fragments. I saw no evidence of ureteral injury as I withdrew the ureteroscope down the ur eter. Because of the trauma caused by the stone manipulation, we elected to place a ureteral stent. I passed a 4.8 [place] variable length stent over the safety wire. We position the stent with the proximal end curled in the renal pelvis and the distal end curled within the bladder. The positioning of the stent was confirmed both fluoroscopically and cystoscopically. The safety string was left on the stent and brought through the patient's urethra. The string was anchored to the dorsum of the penis using a safety string. The patient tolerated this procedure well with no complications. Date of Procedure: 05/31/24
--- NOTE | 2024-05-31 11:20 | W.ANESPOSTOP ---
Postoperative Evaluation Date, Time and Location Date Performed: 05/31/24 Time Performed: 11:05 Patient Location: PACU Vital Signs Most Recent Imported Vital Signs: Most Recent Vital Signs Temp Pulse Resp BP Pulse Ox 36.3 C L 88 18 169/116 H 98 05/31/24 10:55 05/31/24 10:55 05/31/24 10:55 05/31/24 10:55 05/31/24 10:55 Pain Score Most Recent Pain Score: Most Recent Pain Score Pain Level 0 05/31/24 10:47 Assessment Mental Status: Awake (Alert & Oriented to Patient Baseline) Airway and Respiratory Function: Patent airway with normal (patient baseline) respiratory exam Cardiovascular Function: Hemodynamically Stable Hydration Status: Adequately Hydrated Nausea & Vomiting: No Nausea or Vomiting Pain: Pt. Denies Any Pain Peripheral Nerve Block: Patient did not receive a nerve block
[2024-05-31] MEDS: Phenazopyridine 200 MG TAB PO (11:27)
[2024-06-13 13:03] LABS: Source: Left Kidney
== END 2024-05-31 11:40 | disposition home or self-care (01) ==
PROVIDERS: Visit Provider Urology
PROC: (CPT 52356; principal; 2024-05-31 08:30)
DX: N20.0 Calculus of kidney (principal)
CPT/HCPCS: 52356; 74420; 82365; J0131; J0744; J1100; J1885; J2003; J2250; J2405; J2704; J3010; Q9967

== ENCOUNTER 2024-07-05 11:50 | Emergency (ER) | payer SELFPAY ==
[2024-07-05 11:52] VITALS: BP 136/98; PULSE 113; RESP 14; TEMP 37.1; O2SAT 95
--- NOTE | 2024-07-05 12:03 | ED.GENADUL_ITS ---
Discharge Plan Disposition Patient Disposition: Home Condition: Stable Discharge Details Clinical Impression: Contusion of right foot Primary Care Provider: None,None ED Provider: Gómez Hand Home Meds and New Rx's Prescriptions: No Action losartan 100 mg tablet 100 mg PO DAILY Qty: 90 3RF chlorthalidone 25 mg tablet 25 mg PO DAILY Qty: 90 3RF Discharge Instructions Instructions: Minor Contusion ED Additional Instructions: You were seen in the emergency department for the contusion of your right foot, there is no fracture seen on your x-ray, please wear sturdy footwear, wrap the foot with an Mustapha wrap daily, please rest, ice, compress and elevate the foot often. Please use therapeutic dosing of Tylenol (acetamenophen) & Advil (ibuprofen) in an alternating fashion as follows: Take 1000mg of Tylenol every 6 hours without missing doses- that is 4 times per day. Fpc in between the Tylenol dosings, take 400-600mg of Advil also on a 6 hour schedule, that is also 4 times per day. The daily maximum dosing of Tylenol is 4000mg, and the daily maximum dosing of Advil is 2400mg. This is safe to do for weeks. Please note that some common cold medications & prescription pain medications may contain acetamenophen and you need to read OTC drug labels and factor that in to maximum daily dosings. Follow-up with orthopedics for any persistent pain lasting longer than 2 weeks, please return to the emergency department for any signs of infection or neurovascular compromise. Referrals: [facility] [Provider Group] Discharge Data Discharge Date/Time-TO BE ENTERED AT DEPARTURE: 07/05/24 13:10 HPI General Date/Time Provider Initiated Documentation: 07/05/24 12:01 . HPI Narrative: 44 year-old male presents to ED today by POV/ambulating with a chief complaint of R foot pain, R-foot dominant, with onset yesterday when he dropped a tractor part on his foot with some bruising. Quality described as painful to touch, around base of great toe, no radiation to inability to ambulate, calf pain, numbness. Severity is described as moderate. Palliating factors include nothing specific. Provoking factors include nothing specific. Patient not anticoagulated. Related Data Home Medications ?Medication ?Instructions ?Recorded ?Confirmed losartan 100 mg tablet 100 mg PO DAILY #90 tabs 05/23/24 07/05/24 chlorthalidone 25 mg tablet 25 mg PO DAILY #90 tabs 06/20/24 07/05/24 Previous Rx's ?Medication ?Instructions ?Recorded losartan 100 mg tablet 100 mg PO DAILY #90 tabs 05/23/24 chlorthalidone 25 mg tablet 25 mg PO DAILY #90 tabs 06/20/24 Allergies Allergy/AdvReac Type Severity Reaction Status Date / Time Penicillins Allergy Intermediate Hives Verified 07/05/24 11:57 General Stated Complaint: Orthopedic GIACOMO: 4 Review of Systems All systems reviewed & are unremarkable except as noted in HPI and below Exam Narrative Exam Narrative: GENERAL APPEARANCE: Well-nourished, non-toxic, awake and alert, atraumatic, no acute distress. SKIN: Warm, pink, dry, intact, without rashes/lesions/ulcerations. HEAD: Normocephalic, atraumatic, normal hair distribution for gender/age. EYES: Normal conjunctiva, no exudates on lids/lashes. ENT: Nares patent, no circumoral cyanosis, no facial swelling NECK: Supple, trachea midline, painless cervical ROM. LUNGS/CHEST: Non-labored respirations, normal A/P diameter, symmetrical expansion, no chest wall deformity HEART (CV/PV): Regular rate, no peripheral edema, no JVD. ABDOMEN: Soft, non-distended, no guarding. MSK: Normal ROM, no deformity to bilateral UEs or LEs, moving all extremities without weakness, no cyanosis, spine midline without tenderness, normal curvat ure. R FOOT: Mild swelling and ecchymosis around the base of the great toe right fluid, right dorsalis pedis pulse 2+, no crepitus, able to ambulate without antalgic gait NEURO: Mental Status AAOx4 - alert to person, place, time, events No facial droop, no forehead involvement. Motor: No focal weakness - strength 5/5 in bilateral UEs and LEs, proximal and distal, symmetric. Sensory: sensation intact to light touch globally. Gait normal: patient ambulated without ataxia into ED room. PSYCH: euthymic, cooperative, pleasant, appropriate speech Course Vital Signs Vital signs: Vital Signs Temperature 37.1 C 07/05/24 11:52 Pulse 113 H 07/05/24 11:52 Respiratory Rate 14 07/05/24 11:52 Blood Pressure 136/98 H 07/05/24 11:52 Pulse Oximetry 95 07/05/24 11:52 Temperature 37.1 C 07/05/24 11:52 Temperature Source Oral 07/05/24 11:52 Pulse 113 H 07/05/24 11:52 Respiratory Rate 14 07/05/24 11:52 Blood Pressure 136/98 H 07/05/24 11:52 Blood Pressure Position Sitting 07/05/24 11:52 Pulse Oximetry 95 07/05/24 11:52 Oxygen Delivery Method Room Air 07/05/24 11:52 Oxygen Flow Rate 0 07/05/24 11:52 Pain Level 3 07/05/24 11:52 Comment increased pain with palpation and weight bearing. 07/05/24 11:52 Medical Decision Making This dictation utilizes [id number] dictation software and may contain unedited grammatical errors. 44 year-old male presents to ED today by POV/ambulating with a chief complaint of R foot pain, R-foot dominant, with onset yesterday when he dropped a tractor part on his foot with some bruising. Quality described as painful to touch, around base of great toe, no radiation to inability to ambulate, calf pain, n umbness. Severity is described as moderate. Palliating factors include nothing specific. Provoking factors include nothing specific. Patients' medical history: Noncontributory. Family and social history: Noncontributory. Pertinent exam findings / vital signs include bruising around the base of the great toes of the right foot, able to dorsi/plantarflex, right dorsalis pedis pulse 2+, no calf swelling or tenderness. Differential / pathologies of concern include fracture, contusion. Diagnostic studies of: - XR R foot-no acute fracture seen. Interventions of: - Recommend RICE therapy and therapeutic dose of Tylenol and ibuprofen, Mustapha wrap. ED Course/Assessment/Plan: 44-year-old male dropped a tractor piece on his foot yesterday and has bruising and swelling, slight redness to range of motion but overall ambulating well, x- rays negative for fracture, Mustapha wrap's foot recommend RICE therapy and therapeutic dosing of Tylenol and ibuprofen, follow with orthopedics if pain persist past 2-week. Findings not consistent with fracture or neurovascular compromise. Disposition of contusion of right foot. Patient verbalized understanding of the plan and return to ED criteria and en gaged in shared decision making. Medical Records Medical records reviewed: Yes I reviewed the patient's medical records. Imaging Data Radiologic Study: Attestation: I personally reviewed and interpreted this imaging study as follows: Imaging: X-Ray Radiologist's impression: EXAM: XR FOOT RT COMPLETE CLINICAL HISTORY: R foot bruising, base of great toe. TECHNIQUE: 2D digital imaging was performed. COMPARISON: No exams were available for comparison FINDINGS: 3 views No evidence of acute fracture or diastasis of the Lisfranc joint. There are moderate-advanced degenerative changes at the great toe metatarsophalangeal joint. Other MTP joints appear unremarkable as do the tarsometatarsal joints. Moderate size inferior calcaneal spur noted as is an enthesophyte on the posterior calcaneus Achilles insertion site. There is a small accessory ossicle in the dorsal aspect of the foot just dorsal to the distal talar bone. IMPRESSION: Findings as above. No fractures evident. Lab Data Lab results reviewed: Yes I reviewed the patient's lab results. Quality:SDOH Health Related Social Needs: No Data to Display PFSH All Active Problems (Updated 07/05/24 @ 13:01 by NAKIA Bailon) Contusion of right foot (Acute) Hypertension (Chronic) Visit for suture removal (Acute) Medical History (Updated 07/05/24 @ 13:01 by NAKIA Bailon) Hx of fracture of leg Surgical History (Updated 06/01/24 @ 15:51 by David Barrett MD) History of ureteroscopy Hx of wisdom tooth extraction Social History Smoking/Tobacco Use Status: Current every day Tobacco Type: cigarettes Smoking risk assessment performed?: Yes Alcohol Intake: current Alcohol Intake frequency: 3 or more drinks per day Alcohol type: beer Drug use: Never Substance use type: does not use Housing: house Do you feel safe at home: Yes Do you feel safe in your relationship?: Yes PAWSS Have you Been Recently Intoxicated or Drunk Within the Last 30 days?: No Have you Ever Experienced Previous Episodes of Alcohol Withdrawal?: No Have you ever Experienced Withdrawal Seizures?: No Have you ever Experienced Delirium Tremens(DT)s?: No Have you ever undergone Alcohol Rehabilitation Treatment (i.e, inpt ot outpatient treatment programs)?: No Have you ever Experienced Blackouts?: No Have you ever Combined Alcohol with other Downers within the last 90 days?: No Have you ever Combined Alcohol with any other Substance of Abuse during the last 90 days?: No Positive Blood Alcohol level on Presentation? [PCS.BAL]: No Evidence of Increased Autonomic Activity (i.e. HR>120, tremor, sweating, agitation, nausea)?: No Result: 0
--- NOTE | 2024-07-05 12:41 | DI.RAD_ITS ---
Exam(s) XR FOOT RT COMPLETE EXAM: XR FOOT RT COMPLETE CLINICAL HISTORY: R foot bruising, base of great toe. TECHNIQUE: 2D digital imaging was performed. COMPARISON: No exams were available for comparison FINDINGS: 3 views No evidence of acute fracture or diastasis of the Lisfranc joint. There are moderate-advanced degene rative changes at the great toe metatarsophalangeal joint. Other MTP joints appear unremarkable as d o the tarsometatarsal joints. Moderate size inferior calcaneal spur noted as is an enthesophyte on t he posterior calcaneus Achilles insertion site. There is a small accessory ossicle in the dorsal aspect of the foot just dorsal to the distal talar b one. IMPRESSION: Findings as above. No fractures evident. DATA REPOSITORY: RADIATION DOSE DELIVERED:
== END 2024-07-05 13:10 | disposition home or self-care (01) ==
PROVIDERS: Emergency Provider Physician Assistant
DX: S90.31XA Contusion of right foot, initial encounter (principal); W22.8XXA Striking against or struck by other objects, initial encounter
CPT/HCPCS: 99283 ×2; 73630

== ENCOUNTER 2024-07-24 10:48 | Outpatient (CLI) | payer SELFPAY ==
[2024-07-24 08:29] LABS: Anion Gap 8.9 mmol/L (3-11); BUN 20 mg/dL (7-18); CO2 30.1 mmol/L (21.0-32.0); CREATININE 1.5 mg/dL (0.70-1.30); Calcium 10.1 mg/dL (8.5-10.1); Chloride 100 mmol/L (98-107); Estimated GFR 58.87 (mL/min/1.73m2); Glucose 111 mg/dL (74-106); Potassium 3.6 mmol/L (3.5-5.1); Sodium 139 mmol/L (136-145)
== END 2024-07-24 10:49 | disposition home or self-care (01) ==
LOC: LBO 10:49
PROVIDERS: Visit Provider Registered Nurse
DX: I10 Essential (primary) hypertension (principal)
CPT/HCPCS: 36415; 80048

== ENCOUNTER 2024-12-19 14:09 | Outpatient (CLI) | payer SELFPAY ==
--- NOTE | 2024-12-19 13:30 | DI.RAD_ITS ---
Exam(s) XR SHOULDER RT COMPLETE 2+V EXAM: XR SHOULDER RT COMPLETE 2+V CLINICAL HISTORY: RIGHT SHOULDER PAIN. TECHNIQUE: 2D digital imaging was performed. 2 views. COMPARISON: No exams were available for comparison FINDINGS: BONES: No acute fracture is present. No bony destructive lesion is seen. JOINTS: No dislocation present. The joint spaces are maintained. No significant degenerative changes. SOFT TISSUE: Normal. IMPRESSION: Unremarkable radiographs of the right shoulder. DATA REPOSITORY: RADIATION DOSE DELIVERED:
== END 2024-12-19 14:10 | disposition home or self-care (01) ==
LOC: DIORS 14:09
PROVIDERS: Visit Provider Student in an Organized Health Care Education/Training Program
DX: M25.511 Pain in right shoulder (principal)
CPT/HCPCS: 73030

== ENCOUNTER → 2025-01-03 02:22 | Outpatient (CLI) | payer SELFPAY ==
--- NOTE | 2025-01-03 07:30 | DI.RAD_ITS ---
Exam(s) RF JOINT INJ. FLUORO GUID RAD EXAM: RF JOINT INJ. FLUORO GUID RAD CLINICAL HISTORY: R SHOULDER PAIN,fluoro guided inj, arthritis rt shoulder,m19.011. The Patient has had persistent right shoulder pain. Noninvasive measures have been tried. To serve as both diagnostic and therapeutic, an injection under fluoroscopy was recommended. The risks of the procedure were discussed with their Orthopedic provider and the patient elected to proceed. TECHNIQUE: 2D and realtime digital imaging was performed. CONTRAST MATERIAL: Water soluble contrast was utilized. COMPARISON: No exams were available for comparison FINDINGS: The Patient was greeted in the fluoroscopy room. The correct side was identified and the consent was reviewed with the patient and was signed. The patient was properly positioned on the fluoroscopy table. The right shoulderwas then prepped and draped. The right shoulder injection starting point was identified by the bony landmarks and fluoroscopy. The skin and soft tissue in the tract of the injection was anesthetized with 0.25% Bupivacaine. A spinal needle was then inserted into the right shoulder joint at the level of the glenohumeral joint under fluoroscopic guidance. A small amount of Omnipaque solution was injected to confirm intraarticular placement. Once confirmed, the right shoulder was injected with 5cc of a solution containing 0.25% Bupivacaine and 40 mg of Depo-Medrol. A bandaid was placed on the injection site. The patient tolerated the procedure well and left the department in good condition. IMPRESSION: Successful right shoulder injection. RADIATION DOSE DELIVERED: Ka,r=2.78 mGy
[2025-01-03] MEDS: Normal Saline - Diluent 50 ML VIAL IJ (14:51)
[2025-01-03] MEDS: Bupivacaine 0.25% Pres-Free 10 ML VIAL IJ (14:51)
[2025-01-03] MEDS: Omnipaque 300 MG/ML 10 ML BTL IJ (14:52)
[2025-01-03] MEDS: methylPREDNISolone ACETATE 40 MG/ML VIAL IJ (14:53)
== END ==
PROVIDERS: PCP Family Medicine; Visit Provider Student in an Organized Health Care Education/Training Program
DX: M19.011 Primary osteoarthritis, right shoulder (principal)
CPT/HCPCS: 20610; 77002; J0665; J1010

== ENCOUNTER 2025-01-03 16:52 | Outpatient (CLI) | payer SELFPAY ==
[2025-01-03 15:17] LABS: HCT 41.3 % (40.0-50.0); HGB 14.0 g/dL (13.5-17.5); MCH 32.7 pg (27.0-33.0); MCHC 33.9 % (32.0-36.0); MCV 97 fL (80-95); MPV 9.6 fL (8.0-11.0); Platelet Count 217 10^3/uL (130-400); RBC 4.28 10^6/uL (4.36-5.78); RDW 12.0 % (11.8-14.1); RDW-SD 42.5 fL; WBC 10.67 10^3/uL (4.4-10.8)
[2025-01-03 16:26] LABS: ALT 38 U/L (16-63); AST 24 U/L (15-37); Albumin 3.6 g/dL (3.4-5.0); Alkaline Phosphatase 69 U/L (46-116); Anion Gap 11.1 mmol/L (3-11); BUN 16 mg/dL (7-18); Bilirubin, Total 0.3 mg/dL (0.2-1.0); CO2 26.9 mmol/L (21.0-32.0); Calcium 9.3 mg/dL (8.5-10.1); Chloride 104 mmol/L (98-107); Glucose 88 mg/dL (74-106); Potassium 3.3 mmol/L (3.5-5.1); Sodium 142 mmol/L (136-145); Total Protein 7.2 g/dL (6.4-8.2)
== END 2025-01-03 16:53 | disposition home or self-care (01) ==
LOC: LBO 16:52
PROVIDERS: PCP Family Medicine; Visit Provider Family Medicine
DX: I10 Essential (primary) hypertension (principal)
CPT/HCPCS: 36415; 80053; 85027

== ENCOUNTER 2025-02-08 08:39 | Outpatient (CLI) | payer MEDICAID, SELFPAY | END 2025-02-08 08:40 | disposition home or self-care (01) | PROVIDERS: PCP Family Medicine; Visit Provider Registered Nurse | DX: I10 Essential (primary) hypertension (principal); R00.0 Tachycardia, unspecified | CPT/HCPCS: 93270 ==